=== PATIENT | female | born 2005 | race Caucasian/White ===

== ENCOUNTER 2025-06-28 16:54 | Emergency (ER) | payer BC, SELFPAY ==
--- NOTE | 2025-06-28 16:59 | ED.URI ---
HPI - URI/Sore Throat General Stated Complaint: WEAKNESS/HEADACHE/LOW GRADE FEVER/WORK NOTE Time Seen by Provider: 06/28/25 17:05 Source: patient Mode of arrival: ambulatory Limitations: no limitations History of Present Illness HPI Narrative: Linn is a 19-year-old female patient presenting to the clinic today with complaints of a general malaise and fatigue. Reports she has had a low-grade fever and a slight headache. She denies any URI symptoms or sore throat. States symptoms started yesterday. Took a COVID test yesterday and it was negative. She is requesting a work note. Related Data Home Medications ?Medication ?Instructions ?Recorded ?Confirmed ?Last Taken ?Type dicyclomine 10 mg capsule 10 mg PO DAILY 06/13/24 06/14/24 Unknown History Allergies Allergy/AdvReac Type Severity Reaction Status Date / Time cefdinir (From Omnicef) Allergy Hives Verified 06/14/24 15:37 Review of Systems Review of Systems: Pertinent positives per HPI. Patient denies any fever, chills, rash, headache, visual changes, dizziness, cough, runny nose, sore throat, shortness of breath, chest pain, palpitations, nausea, vomiting, diarrhea, constipation, abdominal pain, or any urinary issues. PMFSH Comments At the time of my signature, I reviewed and agree with the nursing past medical, surgical, social, and family history. There is no relevant family history pertinent to the patient complaint. Exam Narrative: General: Well-developed, well nourished, in no apparent distress Head: Normocephalic, atraumatic Eyes: Pupils equally round and reactive to light bilaterally, EOM intact, sclera and conjunctive clear, no discharge, lids normal Ears: TMs intact and clear, ear canals clear, no drainage, grossly hearing normal. Nose: Nares patent, no discharge, no inflammation, no sinus tenderness. Mouth: Oropharynx without lesions or masses, good dentition, MMM. Neck: Supple, trachea midline, no enlargement of anterior or posterior cervical nodes, no thyroid masses or goiter palpable. Cardio: Regular rate and rhythm, s1 and s2 normal, no murmur appreciated. Resp: Clear to auscultation bilaterally anteriorly and posteriorly, no rhonchi, rales, wheezing or rubs Course Course Emergency Course: Portions of this record may have been created with voice recognition software. Level of Care: Express Care Visit Vital Signs Vital signs: Vital Signs Temperature 37.4 C 06/28/25 17:02 Pulse Rate 85 06/28/25 17:02 Respiratory Rate 14 06/28/25 17:02 Blood Pressure 103/71 06/28/25 17:02 Pulse Oximetry 100 06/28/25 17:02 Oxygen Delivery Room Air 06/28/25 17:02 Temperature 37.4 C 06/28/25 17:02 Pulse Rate 85 06/28/25 17:02 Respiratory Rate 14 06/28/25 17:02 Blood Pressure 103/71 06/28/25 17:02 Pulse Oximetry 100 06/28/25 17:02 Oxygen Delivery Room Air 06/28/25 17:02 Vital signs reviewed MDM - URI/Sore Throat MDM Narrative Medical decision making narrative: At the time of visit patient is resting comfortably on the exam table. Patient appears to be nontoxic. Complaints of a general malaise and fatigue. Reports she has had a low-grade fever and a slight headache. She denies any URI symptoms or sore throat. States symptoms started yesterday. Took a COVID test yesterday and it was negative. She is requesting a work note. Plan: I suspect patient has low-grade fever/fatigue. Likely due to viral etiology. Supportive measures were discussed with the patient and they voiced understanding discharge instructions and agrees to treatment plan. Return precautions reviewed Differential Diagnosis Differential diagnosis: Likely upper respiratory infection, otitis media, sinusitis, viral infection, bronchitis, influenza, pharyngitis and other (COVID) Discharge Plan Discharge Clinical Impression: Low grade fever Fatigue Qualifiers: Fatigue type: unspecified Qualified Code(s): R53.83 - Other fatigue Patient Disposition: Home Condition: Stable Instructions: Antibiotic Form, Fever in Adults (ED), Fatigue (ED) Additional Instructions: Increase fluids and stay well hydrated May take Tylenol or motrin as directed on bottle for pain/fever May use Flonase 1 spray in each nare daily May take OTC antihistamines such as Zyrtec or Claritin daily as directed on bottle May apply Vicks vapor rub to chest to open sinuses Sinus rinses for congestion Cepacol spray, cough drops, throat lozenges, warm tea with honey/lemon, gargle salt water to soothe throat BRAT diet for diarrhea Clear liquids x 24 hours then advance as tolerated for nausea/vomiting Go to the ED if you develop a worsening in your condition- high fever not controlled by Tylenol or Motrin, dehydration, weakness, lethargy, shortness of breath, or chest pain. Follow up with your PCP in 3-5 days if symptoms persist. Patient Language: Samoan Prescriptions: No Action dicyclomine 10 mg capsule 10 mg PO DAILY doxycycline hyclate 100 mg capsule 100 mg PO BID 7 Days Qty: 14 0RF fluconazole 150 mg tablet 150 mg PO Q72H Qty: 3 0RF valacyclovir 1 gram tablet 1,000 mg PO Q12H 7 Days Qty: 14 0RF metronidazole 500 mg tablet 500 mg PO BID 7 Days Qty: 14 0RF Follow-up/Referrals: Kimberli,Nehal [Other] Stand Alone Forms: Work/School Release IP Time of Disposition: 17:06 Quality NIHSS Nursing Documentation ED NIHSS nursing documentation: reviewed/agree
[2025-06-28 17:02] VITALS: BP 103/71; PULSE 85; RESP 14; TEMP 37.4; O2SAT 100
== END 2025-06-28 17:10 | disposition home or self-care (01) ==
PROVIDERS: Emergency Provider Nurse Practitioner Family
DX: R50.9 Fever, unspecified (principal); R53.83 Other fatigue
CPT/HCPCS: 99211; G0463

== ENCOUNTER 2025-07-20 15:46 | Emergency (ER) | payer BC, SELFPAY ==
[2025-07-20 15:53] VITALS: BP 113/81; PULSE 83; RESP 16; TEMP 37.1; O2SAT 100
--- NOTE | 2025-07-20 16:03 | ED.FEMALEGU ---
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 Patient noted drip order sent her a test result it he had full STD testing and was positive for chlamydia. Patient does report she uses a condom with intercourse but would like to be checked and treated for chlamydia this time. Denies any symptoms including burning with urination, vaginal discharge, vaginal itching, or irritation. Related Data Home Medications ?Medication ?Instructions ?Recorded ?Confirmed ?Last Taken ?Type aripiprazole 2 mg tablet mg 07/20/25 Unknown History Allergies Allergy/AdvReac Type Severity Reaction Status Date / Time cefdinir (From Omnicef) Allergy Hives Verified 06/14/24 15:37 Review of Systems Constitutional: Constitutional: Reports as per HPI, Denies chills and Denies fatigue Eyes: Eyes: Reports no additional eye complaints ENT: Reports system reviewed and no additional complaints, except as documented Cardiovascular: Cardiovascular: Reports no additional cardiovascular complaints Respiratory: Respiratory: Reports no additional respiratory complaints Gastrointestinal: Gastrointestinal: Reports as per HPI, Denies abdominal pain, Denies diarrhea, Denies nausea and Denies vomiting Genitourinary: Genitourinary: Reports as per HPI, Denies abnormal vaginal bleeding, Denies hematuria, Denies nocturia, Denies genital lesions, Denies dysuria, Denies pelvic pain, Denies flank pain, Denies urinary incontinence and Denies vaginal discharge Musculoskeletal: Musculoskeletal: Reports no additional musculoskeletal complaints Integumentary/Breasts: Skin/Breast: Reports as per HPI, Denies erythema, Denies rash and Denies skin ulcer Neurologic: Reports system reviewed and no additional complaints, except as documented Psychiatric: Psychiatric: Reports no additional psychiatric complaints Endocrine: Endocrine: Reports no additional endocrine complaints Hematologic/Lymphatic: Hematologic/Lymphatic: Reports no additional hematologic/lymphatic complaints Allergic/Immunologic: Allergic/Immunologic: Reports no additional allergic/immunologic complaints Exam Const: General: healthy appearing and no acute distress Nutritional Appearance: well nourished Orientation/consciousness: patient oriented x3 Limitations: no limitations Resp: Effort & Inspection: normal respiratory effort Auscultation: clear to auscultation bilaterally Cardio: Rate: regular rate Rhythm: regular rhythm GI: Inspection: non-distended GI Palp: Yes Soft to palpation, No Tenderness to palpation present (GI), No Guarding due to palpation present (GI), No Rigid due to palpation and No Rebound tenderness present Auscultation: normal bowel sounds : General: Yes bladder normal to palpation and Yes no CVA tenderness Skin: General skin exam: normal color Rashes: no rashes Wounds: no wounds Neuro: General: patient oriented x3 Speech: normal speech Gait exam (Neuro): Normal gait present Psych: Appearance: grossly normal Mental Status: mental status grossly normal Affect: normal affect Attitude: cooperative Course Course Level of Care: Express Care Visit Vital Signs Vital signs: Vital Signs Temperature 98.7 F 07/20/25 15:53 Pulse Rate 83 07/20/25 15:53 Respiratory Rate 16 07/20/25 15:53 Blood Pressure 113/81 07/20/25 15:53 Pulse Oximetry 100 07/20/25 15:53 Temperature 98.7 F 07/20/25 15:53 Pulse Rate 83 07/20/25 15:53 Respiratory Rate 16 07/20/25 15:53 Blood Pressure 113/81 07/20/25 15:53 Pulse Oximetry 100 07/20/25 15:53 [facility] Narrative Medical decision making narrative: Declines treatment here in clinic would like chlamydia treatment only. The patient was evaluated by myself in the express care. History is obtained from patient who is an independent historian and physical exam was performed. Available medical records were reviewed at this time. Exam findings show no acute concerns or changes; patient is non-toxic appearing and is in no distress. Patient is appropriate for outpatient treatment and follow-up. I have evaluated and discussed social determinants of health with the patient that could potentially impact subsequent diagnosis and treatment plans. Differential diagnosis and treatment plan were discussed with the patient. Patient agrees with discussion and after shared medical decision making agrees with plan of care. All questions were answered to the patient's satisfaction. Differential Diagnosis Differential Diagnosis: UTI, dysuria, STD Medical Records I have reviewed the following patient records and this information was taken into consideration when formulating the assessment and plan.: previous labs, previous ER visits, previous hospitalizations and previous clinic visits Lab Data [facility] Lab Attestation statement: I personally reviewed the patient's lab results. Discharge Plan Discharge Clinical Impression: Encounter for screening examination for sexually transmitted disease Patient Disposition: Home Condition: Stable Instructions: Antibiotic Form, Chlamydia (ED), Sexually Transmitted Diseases (ED), Safe Sex Practices (ED) Additional Instructions: will have tested your urine for chlamydia, gonorrhea, Trichomonas. You will get a call from the [facility] with results only if they are positive if you have questions or concerns you may call the [facility]. If you continue to have symptoms follow-up with erisa attorney or primary care physician for evaluation. Would recommend follow-up with primary care, erisa attorney, health department, clinic in [place], or [facility] [place] for further [facility]D testing or follow-up STD testing. They do have blood work testing available at these facilities. Few began to have significant abdominal pain, fever, chills, body aches, or any other concerning symptoms go to the emergency room for further evaluation of symptoms. 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
[2025-07-20 16:11] LABS: EDUAAPPEAR Cloudy; EDUABILI Negative (Negative); EDUABLOOD Trace (Negative); EDUACOLOR1 Yellow; EDUAGLUCOSE Negative (Negative); EDUAKETONE Negative (Negative); EDUALEUKO Negative (Negative); EDUANITRATE Negative (Negative); EDUAPH 6.0; EDUAPROTEIN Negative (Negative); EDUASPGRAVITY 1.025; EDUAUROBILI 0.2
[2025-07-20 18:52] LABS: Trichomonas Vag PCR NOT DETECTED (NOT DETECTE)
== END 2025-07-20 16:13 | disposition home or self-care (01) ==
PROVIDERS: Emergency Provider Nurse Practitioner Family
DX: Z20.2 Contact with and (suspected) exposure to infections with a predominantly sexual mode of transmission (principal)
CPT/HCPCS: 81003; 87491; 87591; 87661; 99213; G0463